=== PATIENT | male | born 1970 | race Hispanic/Latino ===

== ENCOUNTER 2017-11-16 11:47 | Inpatient (IN) | payer BC, OTHER ==
[2017-11-16] MEDS ORDERED: cefTRIAXone 1 gm 1 GM/100 ML BAG IVPB STA (12:27)
[2017-11-16] MEDS ORDERED: Sodium Chloride 0.9% 1,000 ML IV STA (12:29)
--- NOTE | 2017-11-16 12:29 | ED PDOC ---
Arrival/HPI - General Chief Complaint: Male Genitourinary Time Seen by Provider: 11/16/17 11:50 Historian: Patient - History of Present Illness Narrative History of Present Illness (Text): 11/16/17 12:20 pt p/w + ~ 1-2 weeks onset of fever, dysuria, urinary frequency, pt was seen at least twice at [facility] ED with noted urinary retention/+ davila cath placed and subsequently removed at Dr gomez's office; pt was already started on Cipro at first; pt states over the last few days, fever resumed, and urinary difficulties continued; pt states he felt fatigued/weak in general, pt states he was seen again at [facility] ED, had labs and restarted on Cipro, but did not help and when urine culture returned + for MRSA sensitive to Doxy, pt was prescribed it yesterday; given return symptoms of fever/generalized unease/ unwell feeling, pt was instructed by Dr gomez/Enoch, to come to [place] ED for further eval/mgt; pt states no cp/sob/palpitations, no anterior abd pain, no n/v , no appetite changes, no fall/trauma/travel, no sick contact; pt states this all started 1 month ago after + for the flu and developing severe nasal congestions; pt states no loc, no padgett, no other complaints pt is here for further eval. PCP: Dr Kendall Urology: Dr Gomez Time/Duration: > week Symptom Onset: Gradual Symptom Course: Intermittent, Worsening Severity Level: Mild Activities at Onset: Rest Context: Home Past Medical History - Provider Review Nursing Documentation Reviewed: Yes - Travel History Have you recently traveled outside [place] w/in the past 3 mons?: No - Past History Past History: No Previous - Infectious Disease Hx of Infectious Diseases: None - Genitourinary/Gynecological Hx Prostate Problems: Yes - Psychiatric Hx Substance Use: No - Anesthesia Hx Anesthesia: No Family/Social History - Physician Review Nursing Documentation Reviewed: Yes Family/Social History: No Known Family HX Smoking Status: Unknown If Ever Smoked Hx Alcohol Use: No Hx Substance Use: No Hx Substance Use Treatment: No Allergies/Home Meds Allergies/Adverse Reactions: Allergies No Known Allergies Allergy (Verified 11/16/17 12:10) Home Medications: Home Meds Medication Instructions Recorded Confirmed Doxycycline Hyclate [Doryx] 100 mg PO BID 11/16/17 11/16/17 Tamsulosin [Flomax] 0.4 mg PO DAILY 11/16/17 11/16/17 Review of Systems - Review of Systems Constitutional: Fatigue, Fevers Eyes: Normal ENT: Normal Respiratory: Normal Cardiovascular: Normal Gastrointestinal: Normal Genitourinary Male: Dysuria, Frequency Musculoskeletal: Back Pain (right back pain) Skin: Normal Neurological: Normal Endocrine: Normal Hemo/Lymphatic: Normal Psychiatric: Normal Physical Exam Vital Signs Reviewed: Yes Vital Signs Temp Pulse Resp BP Pulse Ox 11/16/17 13:06 100.4 F H 11/16/17 12:01 100.4 F H 92 H 18 130/68 99 Temperature: Febrile Blood Pressure: Normal Pulse: Regular Respiratory Rate: Normal Appearance: Positive for: Well-Appearing, Other (comfortable, alert/awake, cooperative, NAD, follows command with ease, interactive) Pain Distress: None Mental Status: Positive for: Alert and Oriented X 3 - Systems Exam Head: Present: Atraumatic, Normocephalic Pupils: Present: PERRL, Other (no nystagmus, no photophobia, sclera anicteric, visual field intact b/l) Extroacular Muscles: Present: EOMI Conjunctiva: Present: Normal Ears: Present: Normal Mouth: Present: Moist Mucous Membranes, Normal Teeth, Other (uvula/tongue are midline, no exudate/lesions, no drooling/stridor, intact dentitions) Pharnyx: Present: Normal Nose (External): Present: Atraumatic Nose (Internal): Present: Normal Inspection Neck: Present: Normal Range of Motion, Trachea Midline, Other (no step off, no midline tenderness, no nuchal rigidity, no masses/gross deformities). No: MIDLINE TENDERNESS Respiratory/Chest: Present: Clear to Auscultation, Good Air Exchange, Other ( CTA b/l, no w/r/r, no accessory muscle use noted, no tachypenia) Cardiovascular: Present: Regular Rate and Rhythm Abdomen: Present: Normal Bowel Sounds, Other (well nourished male, no focal tenderness, no masses/rebound/guarding/rigidity, no andres's sign, no mcburney' s point tenderness) Back: Present: Normal Inspection, Other (no step off, no midline tenderness). No: CVA Tenderness, Midline Tenderness Upper Extremity: Present: Normal Inspection, Normal ROM, NORMAL PULSES, Neurovascularly Intact, Capillary Refill < 2s Lower Extremity: Present: Normal Inspection, NORMAL PULSES, Normal ROM, Neurovascularly Intact Neurological: Present: GCS=15, CN II-XII Intact, Speech Normal, Other (NIH stroke scale ~ 0, No facial changes, no slurr speech) Skin: Present: Warm, Normal Color, Other (no pallor). No: Rashes Psychiatric: Present: Alert, Oriented x 3 Medical Decision Making ED Course and Treatment: 11/16/17 12:28 Impression: fever, urinary changes i have consider all the differential diagnosis regarding pt's chief medical complaints/clinical findings, including but are not limited to: fever, urinary changes A/P: urine changes, fever - labs - cultures - iv - xray - observe - supportive care 11/16/2017 12:[address] Gomez, whom requests Abd/Pelvis CT and to contact Dr. Nuñez for ID consult and to admit patient to Dr. Nixon's service. 11/16/2017 12:[address] Nixon, whom agrees to admit patient under his service. 11/16/2017 13:17 Chest X-ray IMPRESSION: No active disease. Dictator: Yazan Gallegos MD 11/16/2017 15:02 Abd/Pelvis CT IMPRESSION: There is a fluid collection along the periphery of the left kidney in the upper pole. This is suspicious for pyelonephritis with early abscess formation. Inflammatory changes are seen in the surrounding fat planes. Dictator: Yazan Gallegos MD 11/16/17 15:42 pt is made aware of his medical results agrees with admission pt is not in any distress currently Re-evaluation Time: 15:20 Reassessment Condition: Improved - Lab Interpretations I have reviewed the lab results: Yes Interpretation: Abnormal lab values (decr NA, K) - RAD Interpretation Narrative RAD Interpretations (Text): 11/16/17 15:21 PROCEDURE: CT Abdomen and Pelvis with contrast HISTORY: r.o pyelo, r/o abscess COMPARISON: None. TECHNIQUE: Contrast dose: 100 cc of Omni 350 Radiation dose: Total exam DLP = 717 mGy-cm. This CT exam was performed using one or more of the following dose reduction techniques: Automated exposure control, adjustment of the mA and/or kV according to patient size, and/or use of iterative reconstruction technique. FINDINGS: LOWER THORAX: Unremarkable. LIVER: Unremarkable. No gross lesion or ductal dilatation. GALLBLADDER AND BILE DUCTS: Unremarkable. PANCREAS: Unremarkable. No gross lesion or ductal dilatation. SPLEEN: Unremarkable. ADRENALS: Unremarkable. No mass. KIDNEYS AND URETERS: There is a fluid collection along the periphery of the left kidney in the upper pole. This is suspicious for pyelonephritis with early abscess formation. Inflammatory changes are seen in the surrounding fat planes. The finding is best seen on image 63 series 3 and coronal image 73 Small stones are seen in the lower pole of left kidney VASCULATURE: Unremarkable. No aortic aneurysm. BOWEL: Unremarkable. No obstruction. No gross mural thickening. APPENDIX: Normal appendix. PERITONEUM: Unremarkable. No free fluid. No free air. LYMPH NODES: Unremarkable. No enlarged lymph nodes. BLADDER: Unremarkable. REPRODUCTIVE: Prostate has an nodular appearance with areas of hypodensity. The prostate measures 52 mm transversely BONES: No acute fracture. OTHER FINDINGS: None. IMPRESSION: There is a fluid collection along the periphery of the left kidney in the upper pole. This is suspicious for pyelonephritis with early abscess formation. Inflammatory changes are seen in the surrounding fat planes. 11/16/17 15:43 HISTORY: Sepsis Patient COMPARISON: No prior. FINDINGS: LUNGS: No active pulmonary disease. PLEURA: No significant pleural effusion identified, no pneumothorax apparent. CARDIOVASCULAR: Normal. OSSEOUS STRUCTURES: No significant abnormalities. VISUALIZED UPPER ABDOMEN: Normal. OTHER FINDINGS: None. IMPRESSION: No active disease. Radiology Orders: 11/16/17 12:26 CHEST PORTABLE [RAD] Stat 11/16/17 12:47 ABD & PELVIS IV CONTRAST ONLY [CT] Stat Grain Sacker: Radiologist - EKG Interpretation EKG Interpretation (Text): 11/16/17 15:21 NSR at 85 bpm, normal axis, no ectopy, non-specific st-t changes, inverted T in leads V1-3, ABNL EKG; no old ekg to compare with Interpreted by ED Physician: Yes Type: 12 lead EKG Comparison: No previous EKG avail. - Medication Orders Current Medication Orders: Discontinued Medications Acetaminophen (Tylenol 325mg Tab) 650 mg PO STAT STA Stop: 11/16/17 12:30 Last Admin: 11/16/17 13:06 Dose: 650 mg MAR Pain/Vitals Document 11/16/17 13:06 BRENT (Rec: 11/16/17 13:06 BRENT [id number]) Location Intensity 0 Scale Used Numeric Vitals Temperature (97.6 F-99.6 F) 100.4 F Temperature Source Oral Ceftriaxone Sodium (Rocephin 1 Gram Ivpb) 1 gm in 100 mls @ 200 mls/hr IVPB STAT STA PRN Reason: Protocol Stop: 11/16/17 12:56 Last Admin: 11/16/17 13:07 Dose: 200 mls/hr eMAR Start Stop Document 11/16/17 13:07 BRENT (Rec: 11/16/17 13:07 BRENT [id number]) Intravenous Solution Start Date 11/16/17 Start Time 13:07 End Date 11/16/17 End time 13:37 Total Infusion Time 30 Sodium Chloride (Sodium Chloride 0.9%) 1,000 mls @ 999 mls/hr IV .Q1H1M STA Stop: 11/16/17 13:29 Last Admin: 11/16/17 13:07 Dose: 999 mls/hr eMAR Start Stop Document 11/16/17 13:07 BRENT (Rec: 11/16/17 13:07 BRENT [id number]) Intravenous Solution Start Date 11/16/17 Start Time 13:07 End Date 11/16/17 End time 14:07 Total Infusion Time 60 Vancomycin HCl (Vancomycin 1gm) 1 gm in 250 mls @ 167 mls/hr IVPB STAT STA PRN Reason: Protocol Stop: 11/16/17 14:19 Last Admin: 11/16/17 14:20 Dose: 167 mls/hr eMAR Start Stop Document 11/16/17 14:20 BRENT (Rec: 11/16/17 14:24 BRENT [id number]) Intravenous Solution Start Date 11/16/17 Start Time 14:20 End Date 11/16/17 End time 15:50 Total Infusion Time 90 Potassium Chloride (Klor-Con 10) 10 meq PO STAT STA Stop: 11/16/17 15:24 Disposition/Present on Arrival - Present on Arrival Any Indicators Present on Arrival: No History of DVT/PE: No History of Uncontrolled Diabetes: No Urinary Catheter: No History of Decub. Ulcer: No History Surgical Site Infection Following: None - Disposition Have Diagnosis and Disposition been Completed?: Yes Diagnosis: Acute pyelonephritis, UTI (urinary tract infection), Hypokalemia Disposition: HOSPITALIZED Disposition Time: 13:00 Patient Plan: Admission Patient Problems: Current Active Problems Problem Status Onset Acute pyelonephritis Acute UTI (urinary tract infection) Acute Hypokalemia Acute Condition: STABLE
[2017-11-16] MEDS ORDERED: Vancomycin 1gm in NS 250ml 1 GM/250 ML BAG IVPB STA (12:50)
--- NOTE | 2017-11-16 13:19 | RAD ---
HISTORY: Sepsis Patient COMPARISON: No prior. FINDINGS: LUNGS: No active pulmonary disease. PLEURA: No significant pleural effusion identified, no pneumothorax apparent. CARDIOVASCULAR: Normal. OSSEOUS STRUCTURES: No significant abnormalities. VISUALIZED UPPER ABDOMEN: Normal. OTHER FINDINGS: None. IMPRESSION: No active disease.
[2017-11-16 13:32] LABS: VENOUS BLOOD GAS PO2 35 mm/Hg (30-55); VENOUS BLOOD PH 7.46 (7.32-7.43)
[2017-11-16 13:33] LABS: URINE BILIRUBIN NEGATIVE (NEGATIVE); URINE BLOOD NEGATIVE (NEGATIVE); URINE COLOR YELLOW (YELLOW); URINE GLUCOSE (UA) NEGATIVE (NEGATIVE); URINE LEUKOCYTE ESTERASE SMALL Leu/uL (NEGATIVE); URINE NITRATE NEGATIVE (NEGATIVE); URINE PROTEIN NEGATIVE mg/dL (<30 mg/dL); URINE UROBILINOGEN 0.2 E.U./dL (<1 E.U./dL)
[2017-11-16 13:33] LABS: GRAN # 7.12 (1.4-6.5); GRAN % 85.1 % (50.0-68.0); HEMOGLOBIN 11.5 g/dL (14.0-18.0); LYMPH # 0.7 (1.2-3.4); LYMPH % 8.2 % (22.0-35.0); MEAN CELL VOLUME 82.7 fl (80.0-105.0); MEAN CORPUSCULAR HGB CONC 33.8 g/dl (31.0-37.0); MEAN PLATELET VOLUME 10.1 fl (7.0-11.0); MONO # 0.6 (0.1-0.6); MONO % 6.7 % (1.0-6.0); RBC 4.11 10^6/uL (3.5-6.1); RED CELL DISTRIBUTION WIDTH 13.5 % (11.5-14.5); WHITE BLOOD COUNT 8.4 10^3/ul (4.5-11.0)
[2017-11-16 13:34] LABS: URINE APPEARANCE CLEAR (CLEAR)
[2017-11-16 13:39] LABS: ALBUMIN 3.7 g/dL (3.0-4.8); ALT/SGPT 40 U/L (7-56); AST/SGOT 20 U/L (17-59); BLOOD UREA NITROGEN 14 mg/dL (7-21); CALCIUM 10.2 mg/dL (8.4-10.5); GFR AFRICAN-AMERICAN > 60; GFR NON-AFRICAN AMERICAN > 60
[2017-11-16] MEDS ORDERED: Iohexol 350 MG/100 ML VIAL ONE (13:47)
[2017-11-16 13:49] LABS: URINE RBC NEGATIVE /hpf (0-2)
[2017-11-16 13:50] LABS: URINE BACTERIA MOD (NEG); URINE EPITHELIAL CELLS 0 - 2 /hpf (0-5)
--- NOTE | 2017-11-16 15:03 | CT ---
PROCEDURE: CT Abdomen and Pelvis with contrast HISTORY: r.o pyelo, r/o abscess COMPARISON: None. TECHNIQUE: Contrast dose: 100 cc of Omni 350 Radiation dose: Total exam DLP = 717 mGy-cm. This CT exam was performed using one or more of the following dose reduction techniques: Automated exposure control, adjustment of the mA and/or kV according to patient size, and/or use of iterative reconstruction technique. FINDINGS: LOWER THORAX: Unremarkable. LIVER: Unremarkable. No gross lesion or ductal dilatation. GALLBLADDER AND BILE DUCTS: Unremarkable. PANCREAS: Unremarkable. No gross lesion or ductal dilatation. SPLEEN: Unremarkable. ADRENALS: Unremarkable. No mass. KIDNEYS AND URETERS: There is a fluid collection along the periphery of the left kidney in the upper pole. This is suspicious for pyelonephritis with early abscess formation. Inflammatory changes are seen in the surrounding fat planes. The finding is best seen on image 63 series 3 and coronal image 73 Small stones are seen in the lower pole of left kidney VASCULATURE: Unremarkable. No aortic aneurysm. BOWEL: Unremarkable. No obstruction. No gross mural thickening. APPENDIX: Normal appendix. PERITONEUM: Unremarkable. No free fluid. No free air. LYMPH NODES: Unremarkable. No enlarged lymph nodes. BLADDER: Unremarkable. REPRODUCTIVE: Prostate has an nodular appearance with areas of hypodensity. The prostate measures 52 mm transversely BONES: No acute fracture. OTHER FINDINGS: None. IMPRESSION: There is a fluid collection along the periphery of the left kidney in the upper pole. This is suspicious for pyelonephritis with early abscess formation. Inflammatory changes are seen in the surrounding fat planes.
[2017-11-16] MEDS ORDERED: Potassium Chloride 10 mEq ER Tab PO STA (15:23)
[2017-11-16] MEDS ORDERED: Pneumococcal 23-Valent Vaccine IM ONE (16:48)
[2017-11-16] MEDS ORDERED: Influenza Vaccine 60 mcg/0.5 mL SYR (4YR UP) IM ONE (16:48)
[2017-11-16] MEDS ORDERED: Sodium Chloride 0.9% 1,000 ML IV SCH (18:30)
[2017-11-16 21:05] LABS: URINE BILIRUBIN NEGATIVE (NEGATIVE); URINE BLOOD NEGATIVE (NEGATIVE); URINE GLUCOSE (UA) NEGATIVE (NEGATIVE); URINE LEUKOCYTE ESTERASE SMALL Leu/uL (NEGATIVE); URINE NITRATE NEGATIVE (NEGATIVE); URINE PROTEIN NEGATIVE mg/dL (<30 mg/dL); URINE UROBILINOGEN 0.2 E.U./dL (<1 E.U./dL)
[2017-11-16 21:06] LABS: URINE APPEARANCE CLEAR (CLEAR); URINE COLOR LIGHT YELLOW (YELLOW)
[2017-11-16 21:20] LABS: URINE RBC NEGATIVE /hpf (0-2); URINE WBC 0 - 2 /hpf (0-6)
[2017-11-17 07:04] LABS: HEMOGLOBIN 11.6 g/dL (14.0-18.0); MEAN CELL VOLUME 84.1 fl (80.0-105.0); MEAN CORPUSCULAR HEMOGLOBIN 27.9 pg (25.0-35.0); MEAN CORPUSCULAR HGB CONC 33.1 g/dl (31.0-37.0); MEAN PLATELET VOLUME 10.3 fl (7.0-11.0); RBC 4.16 10^6/uL (3.5-6.1); RED CELL DISTRIBUTION WIDTH 13.8 % (11.5-14.5); WHITE BLOOD COUNT 6.3 10^3/ul (4.5-11.0)
[2017-11-17 07:17] LABS: ALBUMIN 3.5 g/dL (3.0-4.8); ALT/SGPT 36 U/L (7-56); AST/SGOT 28 U/L (17-59); BLOOD UREA NITROGEN 14 mg/dL (7-21); CALCIUM 10.3 mg/dL (8.4-10.5); GFR AFRICAN-AMERICAN > 60; GFR NON-AFRICAN AMERICAN > 60; MAGNESIUM 2.2 mg/dL (1.7-2.2)
[2017-11-17] MEDS: Piperacillin/Tazobact 3.375 gm 100 ML IVPB SCH ×3 (07:26→17:38)
[2017-11-17] MEDS: Vancomycin 1gm in NS 250ml 1 GM/250 ML BAG IVPB SCH ×2 (08:51→20:48)
--- NOTE | 2017-11-17 09:33 | CARD ---
APPROVED REPORT EKG Measurement Heart [id number] FL [id number] <Conclusion> Normal sinus rhythm Possible Left atrial enlargement T wave abnormality V1-V3.
[2017-11-17] MEDS: POLYETHYLENE GLYCOL 3350 17 GM/Dose PACKET PO SCH (16:06)
--- NOTE | 2017-11-17 22:13 | CP.PCM.CON ---
History of Present Illness - History of Present Illness History of Present Illness: 47 year old male with no significant past medical history came in to [facility] after after being seen several times at the [facility] urgent care center several times over the past month. He initially developed urinary retention for which a Pino catheter was placed. He subsequently went to his Urologist who removed the Pino catheter. He was given Ciprofloxacin because he was having dysuria. He felt better but then he developed retention again and went back the urgent care center and had another Pino catheter and at that time, pus came out through the Pino Catheter. He also started having some pain on his left flank. He was continued on Ciprofloxacin but was then switched to Doxycycline after he was found to have MRSA on the culture of the pus that came out of the Pino. He continue to have some dysuria and flank pain and he was instructed by his PMD to be admitted at [facility]. He currently denies fever or chills, no nausea or vomiting, no chest pain, no SOB, no headache or dizziness, no sore throat, no diarrhea. Infectious Diseases consult is requested to further evaluate and manage. Review of Systems - Review of Systems All systems: reviewed and no additional remarkable complaints except (as per HPI ) Past Patient History - Infectious Disease Hx of Infectious Diseases: None - Past Social History Smoking Status: Never Smoked - INTEGUMENTARY Hx Psoriasis: Yes - MUSCULOSKELETAL/RHEUMATOLOGICAL Hx Falls: No - GENITOURINARY/GYNECOLOGICAL Hx Prostate Problems: Yes - PSYCHIATRIC Hx Substance Use: No - ANESTHESIA Hx Anesthesia: No Meds Allergies/Adverse Reactions: Allergies Allergy/AdvReac Type Severity Reaction Status Date / Time No Known Allergies Allergy Verified 11/16/17 12:10 - Medications Medications: Current Medications Vancomycin HCl (Vancomycin 1gm) 1 gm in 250 mls @ 167 mls/hr IVPB Q12H EDELMIRA PRN Reason: Protocol Stop: 11/24/17 06:31 Piperacillin Sod/Tazobactam Sod (Zosyn 3.375 In Ns 100ml) 100 mls @ 200 mls/hr IVPB Q6 EDELMIRA PRN Reason: Protocol Stop: 11/24/17 06:19 Tamsulosin HCl (Flomax) 0.4 mg PO DAILY EDELMIRA Physical Exam - Constitutional Appears: Non-toxic - Head Exam Head Exam: NORMAL INSPECTION - Neck Exam Neck exam: Negative for: Meningismus - Respiratory Exam Respiratory Exam: Decreased Breath Sounds - Cardiovascular Exam Cardiovascular Exam: +S1, +S2 - GI/Abdominal Exam GI & Abdominal Exam: Soft. absent: Tenderness Results - Vital Signs Recent Vital Signs: Last Vital Signs Temp 99.3 F 11/17/17 00:00 Pulse 76 11/17/17 00:00 Resp 18 11/17/17 00:00 BP 122/78 11/17/17 00:00 Pulse Ox 95 11/17/17 00:00 - Labs Result Diagrams: 11/17/17 06:30 11/17/17 06:30 Labs: Laboratory Results - last 24 hr 11/16/17 11/16/17 11/16/17 13:11 13:15 13:15 WBC 8.4 RBC 4.11 Hgb 11.5 L Hct 34.0 L MCV 82.7 MCH 28.0 MCHC 33.8 RDW 13.5 Plt Count 161 MPV 10.1 Gran % 85.1 H Lymph % (Auto) 8.2 L [place] % (Auto) 6.7 H Eos % (Auto) 0.0 L Baso % (Auto) 0.0 Gran # 7.12 H Lymph # (Auto) 0.7 L [place] # (Auto) 0.6 Eos # (Auto) 0.0 Baso # (Auto) 0.00 pO2 VBG pH VBG pCO2 VBG HCO3 VBG Total CO2 VBG O2 Sat (Calc) VBG Base Excess VBG Potassium Sodium Chloride Glucose Lactate FiO2 Potassium Carbon Dioxide Anion Gap BUN Creatinine Est GFR ( Amer) Est GFR (Non-Af Amer) Random Glucose Calcium Phosphorus Magnesium Total Bilirubin AST ALT Alkaline Phosphatase C-React Prot High Sens Total Protein Albumin Globulin Albumin/Globulin Ratio Procalcitonin < 0.05 L Venous Blood Potassium Urine Color Yellow Urine Appearance Clear Urine pH 6.0 Ur Specific [place] 1.010 Urine Protein Negative Urine Glucose (UA) Negative Urine Ketones Negative Urine Blood Negative Urine Nitrate Negative Urine Bilirubin Negative Urine Urobilinogen 0.2 Ur Leukocyte Esterase Small H Urine RBC Negative Urine WBC 5 - 10 Ur Epithelial Cells 0 - 2 Urine Bacteria Mod 11/16/17 11/16/17 11/16/17 13:15 13:15 13:15 WBC RBC Hgb Hct MCV MCH MCHC RDW Plt Count MPV Gran % Lymph % (Auto) [place] % (Auto) Eos % (Auto) Baso % (Auto) Gran # Lymph # (Auto) [place] # (Auto) Eos # (Auto) Baso # (Auto) pO2 35 VBG pH 7.46 H VBG pCO2 43.0 VBG HCO3 30.6 H VBG Total CO2 31.9 H VBG O2 Sat (Calc) 76.8 H VBG Base Excess 6.0 H VBG Potassium 3.2 L Sodium 127.0 L 129 L Chloride 93.0 L 91 L Glucose 124 H Lactate 1.1 FiO2 21.0 Potassium 3.3 L Carbon Dioxide 27 Anion Gap 14 BUN 14 Creatinine 0.8 Est GFR ( Amer) > 60 Est GFR (Non-Af Amer) > 60 Random Glucose 123 H Calcium 10.2 Phosphorus 2.6 Magnesium 2.0 Total Bilirubin 0.6 AST 20 ALT 40 Alkaline Phosphatase 43 C-React Prot High Sens 13.44 H Total Protein 7.2 Albumin 3.7 Globulin 3.5 Albumin/Globulin Ratio 1.0 L Procalcitonin Venous Blood Potassium 3.2 L Urine Color Urine Appearance Urine pH Ur Specific [place] Urine Protein Urine Glucose (UA) Urine Ketones Urine Blood Urine Nitrate Urine Bilirubin Urine Urobilinogen Ur Leukocyte Esterase Urine RBC Urine WBC Ur Epithelial Cells Urine Bacteria 11/16/17 20:50 WBC RBC Hgb Hct MCV MCH MCHC RDW Plt Count MPV Gran % Lymph % (Auto) [place] % (Auto) Eos % (Auto) Baso % (Auto) Gran # Lymph # (Auto) [place] # (Auto) Eos # (Auto) Baso # (Auto) pO2 VBG pH VBG pCO2 VBG HCO3 VBG Total CO2 VBG O2 Sat (Calc) VBG Base Excess VBG Potassium Sodium Chloride Glucose Lactate FiO2 Potassium Carbon Dioxide Anion Gap BUN Creatinine Est GFR ( Amer) Est GFR (Non-Af Amer) Random Glucose Calcium Phosphorus Magnesium Total Bilirubin AST ALT Alkaline Phosphatase C-React Prot High Sens Total Protein Albumin Globulin Albumin/Globulin Ratio Procalcitonin Venous Blood Potassium Urine Color Light yellow Urine Appearance Clear Urine pH 7.0 Ur Specific [place] 1.010 Urine Protein Negative Urine Glucose (UA) Negative Urine Ketones Negative Urine Blood Negative Urine Nitrate Negative Urine Bilirubin Negative Urine Urobilinogen 0.2 Ur Leukocyte Esterase Small H Urine RBC Negative Urine WBC 0 - 2 Ur Epithelial Cells None Urine Bacteria Assessment & Plan - Assessment and Plan (Free Text) Plan: Assessment Left perinephric abscess in this patient with probable pyelonephritis R/O prostatitis in this patient with MRSA UTI Plan Started patient on Vancomycin and Zosyn pending plan for perinephric abscess as seen on CT A/P - follow up Urology recommendations follow up blood and urine cx will monitor clinically
[2017-11-18] MEDS: Piperacillin/Tazobact 3.375 gm 100 ML IVPB SCH ×3 (00:48→12:58)
--- NOTE | 2017-11-18 02:49 | HP ---
CHIEF COMPLAINT AND HISTORY OF PRESENT ILLNESS: This is a 47-year-old male, who is coming into the hospital complaining of fever, dysuria, saying pus coming out while he is urinating. The patient was seen at [facility] for urinary retention. He had a Pino catheter placed. The patient had been gone to Dr. Angulo's office for evaluation. He had 2 attempts in trying to take out the catheter in order for the patient to be able to urinate. He was given ciprofloxacin for antibiotics but states that the ciprofloxacin did not help. The patient was found to have urine culture that was positive for MRSA and was given doxycycline for antibiotics. The patient has been having generalized weakness, he was not feeling well. He had been instructed by Dr. Angulo and Dr. Kendall to come into the ER for further evaluation. The patient denies any chest pain or shortness of breath. No abdominal pain. No headache. He is also complaining of back pain that was intermittent. He also was treated for flu about a month ago. He said the flu symptoms have improved. He has no complaints of any headaches or dizziness. No weakness in the arms or legs. REVIEW OF SYMPTOMS: All other review of symptoms are within normal limits except what was mentioned. ALLERGIES: NO KNOWN DRUG ALLERGIES. HOME MEDICATIONS: Doxycycline and Flomax. PAST MEDICAL HISTORY: Urinary retention. SOCIAL HISTORY: He does not smoke or drink. PHYSICAL EXAMINATION: VITAL SIGNS: Temperature is 98.3, pulse is 67, blood pressure is 118/78, respirations 18, O2 saturation 99%. Height is 5 feet 9 inches, weight is 195 pounds, BMI is 28.8. GENERAL: The patient lying in bed, uncomfortable, and in no acute distress. HEENT: Atraumatic and normocephalic. Anicteric sclerae. Moist mucosa. [place] conjunctivae. No oral lesions. NECK: No JVD, anterior and posterior adenopathy, thyromegaly, or bruits. CARDIOVASCULAR: S1 and S2 regular. No murmur, rubs, or gallop. LUNGS: Clear to auscultation bilaterally. No wheezes, rales, or rhonchi. ABDOMEN: Bowel sounds are positive. Soft, nontender and nondistended. No hepatosplenomegaly. No rebound and no guarding. EXTREMITIES: No cyanosis, clubbing, or edema. NEUROLOGIC: No facial asymmetry. Tongue is midline. No uvula deviation. Power is 5/5 upper extremity and lower extremity. Sensation intact in upper extremity and lower extremity. PSYCHIATRIC: She is awake, alert and oriented x3. No anxiety or depression. She has normal affect. GENITOURINARY: No CVA tenderness. VASCULAR: 2+ pulses in the carotid pulses and pedal pulses. SKIN: No erythema or nodules SPINE: Shows normal curvature. LABORATORY DATA: White count is 8.4, hemoglobin 11.5. Rest of his labs have been reviewed. Sodium is 129, potassium is 3.3. He has procalcitonin of 0.05. His urine as done shows esterase is small. He has blood cultures that are negative. Urine cultures that are negative. EKG shows sinus rhythm. QTc is 445, heart rate of 86. Abdominal CT done. He has a fluid collection along the periphery of the left kidney in the upper lobe suspicious for pyelonephritis with early abscess formation. ASSESSMENT: 1. Urinary tract infection. 2. Left-sided pyelonephritis with early abscess. 3. Hyponatremia. 4. Hypokalemia. PLAN: The patient's urine cultures and blood cultures are negative. This is most likely because the patient has been on antibiotics. The patient has a CAT scan that shows an abscess. He is going to be admitted to the hospital for IV antibiotics. The patient has been having back pain as well. He initially had a temperature of 100.4 on admission. He is going to be placed on vancomycin and Zosyn for antibiotics and I will get Infectious Disease and Urology to see the patient. The patient is going to be on a heart-healthy diet. I did speak to the patient's at the bedside to give her an update on the patient's diagnoses and plan of care. The patient had hyponatremia and hypokalemia. The potassium is replaced and the patient was given IV fluids. His electrolytes have improved. We will await further inputs from the consultants regarding the patient's further plan of care. Chon Lai MD
[2017-11-18] MEDS: Vancomycin 1gm in NS 250ml 1 GM/250 ML BAG IVPB SCH ×2 (06:49→17:41)
[2017-11-18] MEDS: POLYETHYLENE GLYCOL 3350 17 GM/Dose PACKET PO SCH (09:12)
--- NOTE | 2017-11-18 15:15 | CP.PCM.PN ---
Subjective - Date & Time of Evaluation Date of Evaluation: 11/18/17 Time of Evaluation: 09:30 - Subjective Subjective: Feeling a little better, no fevers overnight. Objective - Vital Signs/Intake and Output Vital Signs (last 24 hours): Temp Pulse Resp BP Pulse Ox 98.8 F 86 20 126/83 98 11/18/17 00:00 11/18/17 00:00 11/18/17 00:00 11/18/17 00:00 11/18/17 00:00 Intake and Output: 11/18/17 11/18/17 06:59 18:59 Intake Total 480 Balance 480 - Medications Medications: Current Medications Vancomycin HCl (Vancomycin 1gm) 1 gm in 250 mls @ 167 mls/hr IVPB Q12H EDELMIRA PRN Reason: Protocol Stop: 11/24/17 06:31 Last Admin: 11/18/17 06:49 Dose: 167 mls/hr Piperacillin Sod/Tazobactam Sod (Zosyn 3.375 In Ns 100ml) 100 mls @ 200 mls/hr IVPB Q6 EDELMIRA PRN Reason: Protocol Stop: 11/24/17 06:19 Last Admin: 11/18/17 12:58 Dose: 200 mls/hr Polyethylene Glycol (Miralax) 17 gm PO DAILY EDELMIRA Last Admin: 11/18/17 09:12 Dose: 17 gm Tamsulosin HCl (Flomax) 0.4 mg PO DAILY [facility] Last Admin: 11/18/17 09:12 Dose: 0.4 mg - Labs Labs: 11/17/17 06:30 11/17/17 06:30 - Constitutional Appears: Non-toxic - Head Exam Head Exam: NORMAL INSPECTION - Respiratory Exam Respiratory Exam: Decreased Breath Sounds - Cardiovascular Exam Cardiovascular Exam: +S1, +S2 - GI/Abdominal Exam GI & Abdominal Exam: Soft. absent: Tenderness Assessment and Plan - Assessment and Plan (Free Text) Plan: Assessment Left perinephric abscess in this patient with probable pyelonephritis and probable prostatitis in this patient who grew MRSA in the urine previously Plan on Vancomycin and Zosyn day 2 - blood and urine cx have been negative on this admission - urine has cleared while on Doxycycline as an outpatient - discussed with Dr. Angulo - perinephric abscess is too small to be drained and can be treated conservatively will recommend at least 4 weeks of Doxycycline with outpatient follow up with Urology will continue to monitor clinically
--- NOTE | 2017-11-18 16:43 | PN ---
DATE: SUBJECTIVE: The patient is 47 years old, resting comfortably. Girlfriend by the bedside has multiple questions. Denies any fever or chills. No nausea, vomiting or diarrhea. PHYSICAL EXAMINATION: VITAL SIGNS: He is afebrile, pulse 66, respirations 20, blood pressure 126/83. LUNGS: Bilateral good airflow. No rhonchi or crackle. HEART: S1 and S2 audible. ABDOMEN: Soft. Nontender. No rebound. No guarding. NEUROLOGIC: He is awake, alert, oriented, communicative. LABORATORY DATA: Procalcitonin 0.05. Venous potassium is 3.2. Sodium 129, potassium 3.3, chloride 91, CO2 of 27, BUN 14, creatinine of 0.8, blood sugar of 123. Blood cultures, urine cultures are negative. ASSESSMENT: 1. Recurrent urinary tract infection. 2. Left perinephric abscess. 3. Pyelonephritis. 4. Hyponatremia. 5. Hypokalemia. PLAN: At this point, the patient is on vancomycin and Zosyn. He is on Flomax. We will order his CBC and CMP in the a.m. Explained to girlfriend who was at the bedside. We will follow up this patient in the a.m. Ally Soria MD
[2017-11-19 03:27] VITALS: RESP 18
[2017-11-19] MEDS: Vancomycin 1gm in NS 250ml 1 GM/250 ML BAG IVPB SCH (05:39)
[2017-11-19 08:09] VITALS: BP 115/74; PULSE 70; TEMP 98; O2SAT 98
[2017-11-19 08:38] LABS: BASO # 0.01 K/mm3 (0.0-2.0); BASO % 0.2 % (0.0-3.0); EOS # 0.1 (0.0-0.7); EOS % 1.2 % (1.5-5.0); GRAN # 3.63 (1.4-6.5); GRAN % 70.5 % (50.0-68.0); HEMOGLOBIN 10.8 g/dL (14.0-18.0); LYMPH # 1.2 (1.2-3.4); LYMPH % 22.5 % (22.0-35.0); MEAN CORPUSCULAR HEMOGLOBIN 27.5 pg (25.0-35.0); MEAN CORPUSCULAR HGB CONC 32.3 g/dl (31.0-37.0); MEAN PLATELET VOLUME 9.9 fl (7.0-11.0); MONO # 0.3 (0.1-0.6); MONO % 5.6 % (1.0-6.0); RBC 3.93 10^6/uL (3.5-6.1); WHITE BLOOD COUNT 5.2 10^3/ul (4.5-11.0)
[2017-11-19 09:24] LABS: ALBUMIN 3.1 g/dL (3.0-4.8); ALT/SGPT 62 U/L (7-56); AST/SGOT 29 U/L (17-59); BLOOD UREA NITROGEN 12 mg/dL (7-21); CALCIUM 9.9 mg/dL (8.4-10.5); GFR AFRICAN-AMERICAN > 60; GFR NON-AFRICAN AMERICAN > 60
[2017-11-19] MEDS: POLYETHYLENE GLYCOL 3350 17 GM/Dose PACKET PO SCH (10:03)
--- NOTE | 2017-11-19 13:18 | CP.PCM.PN ---
Subjective - Date & Time of Evaluation Date of Evaluation: 11/19/17 Time of Evaluation: 11:25 - Subjective Subjective: Urinating much better, no fevers, no flank pain, not in distress Objective - Vital Signs/Intake and Output Vital Signs (last 24 hours): Temp Pulse Resp BP Pulse Ox 98.8 F 86 20 126/83 98 11/18/17 00:00 11/18/17 00:00 11/18/17 00:00 11/18/17 00:00 11/18/17 00:00 Intake and Output: 11/18/17 11/18/17 06:59 18:59 Intake Total 480 Balance 480 - Medications Medications: Current Medications Doxycycline Hyclate (Doryx) 100 mg PO Q12 EDELMIRA PRN Reason: Protocol Vancomycin HCl (Vancomycin 1gm) 1 gm in 250 mls @ 167 mls/hr IVPB Q12H EDEMLIRA PRN Reason: Protocol Stop: 11/24/17 06:31 Last Admin: 11/18/17 06:49 Dose: 167 mls/hr Polyethylene Glycol (Miralax) 17 gm PO DAILY [facility] Last Admin: 11/18/17 09:12 Dose: 17 gm Tamsulosin HCl (Flomax) 0.4 mg PO DAILY [facility] Last Admin: 11/18/17 09:12 Dose: 0.4 mg - Labs Labs: 11/17/17 06:30 11/17/17 06:30 - Constitutional Appears: Non-toxic - Head Exam Head Exam: NORMAL INSPECTION - ENT Exam ENT Exam: Mucous Membranes Moist - Neck Exam Neck Exam: absent: Meningismus - Respiratory Exam Respiratory Exam: Decreased Breath Sounds. absent: Rales - Cardiovascular Exam Cardiovascular Exam: +S1, +S2 - GI/Abdominal Exam GI & Abdominal Exam: Soft. absent: Tenderness Assessment and Plan - Assessment and Plan (Free Text) Plan: Assessment Left perinephric abscess in this patient with probable pyelonephritis and probable prostatitis in this patient who grew MRSA in the urine previously Plan on Vancomycin - will change to PO Doxycycline since urine cx and blood are negative on this admission, which means that the Doxycycline that the patient was talking as an oupatient has cleared the urine - discussed with Dr. Angulo - perinephric abscess is too small to be drained and can be treated conservatively will recommend at least 4 weeks of Doxycycline with outpatient follow up with Urology will continue to monitor clinically
--- NOTE | 2017-11-20 04:53 | DS ---
HISTORY OF PRESENT ILLNESS: The patient is 47 years old, seen and examined, doing well. No nausea, vomiting. No diarrhea. No fever, no chills. No chest pain. No shortness of breath. The patient states he has been having urinary discomfort for almost a month. Initially, he was found to have a UTI. He went to [facility] where he was given antibiotic. He developed retention. He was catheterized. He was seen twice in the [facility]. He was followed by Dr. Angulo. His Pino was removed. At that point, he was on Cipro. He developed fever, chills with nausea and vomiting. So he came to [facility] where he had blood culture and urine culture done. They are unremarkable. The patient currently is asymptomatic, urinating fine. PHYSICAL EXAMINATION: VITAL SIGNS: He is afebrile, pulse 70, respirations 18, blood pressure 115/74. LUNGS: Bilateral good airflow. No rhonchi or crackle. HEART: S1 and S2 audible. ABDOMEN: Soft. Nontender. No rebound. No guarding. NEUROLOGIC: He is awake, alert, oriented, communicative, ambulatory. LABORATORY DATA: Sodium 140, potassium 3.8, chloride 102, CO2 of 29, BUN 12, creatinine of 0.8, blood sugar 94. ASSESSMENT: 1. Recurrent urinary tract infection. 2. Probably prostatitis. 3. Left perinephric stranding, questionable abscess versus pyelonephritis. PLAN: ID input noted and appreciated. Recommendation is to be on doxycycline 100 twice a day for a month and he will be followed by Dr. Angulo as outpatient. He will have a repeat CT of the abdomen and pelvis done to see if fluid has reabsorbed or it is still there. At this point, according to Dr. Angulo's recommendation, there is no intervention or drainage needed. Ally Soria MD
--- NOTE | 2017-11-20 08:54 | PN ---
DATE: 11/17/2017 SUBJECTIVE: Patient known to me, presented a few weeks ago with urinary retention which appeared to be from medications and decongestants and antihistamines that he was taking for upper respiratory infection and flu. Patient had a Pino catheter inserted in an urgent care; he then presented a few days later for a voiding trial. Pino was removed and patient was again unable to void and requiring Pino to be replaced. Patient had been taking alpha-leslie. He reports when the catheter was initially placed, he had not voided for about 2 days and his bladder was noted to be markedly distended. Prior to this episode, patient reports no voiding difficulties in the past. He has had good stream with no nocturia. After Pino was reinserted, the patient reported few days later, high fever and shaking chills. He was told to come to the hospital which he did not do; he went back to urgent care, a culture was done, and he was started on Cipro. The culture grew MRSA in his urine. His antibiotics were switched to doxycycline, which the MRSA was sensitive to; however, patient continued to have high fever and chills as well as elevated ESR. Again, patient was referred for admission. This time, he presented to the emergency room and was now admitted. CT scan was done, which I reviewed with Radiology. There does appear to be a tiny collection near his kidney. Also, his prostate is heterogeneous and abnormal. OBJECTIVE: Patient has been afebrile since admission with stable vital signs. LABORATORY DATA: WBC count was 8.4 yesterday, down to 6.3 today. GFR is normal. C-reactive protein is elevated and procalcitonin is negative. Urine culture showed no growth. Blood cultures, no growth after 24 hours. IMPRESSION AND PLAN: Continue patient on antibiotics for methicillin-resistant Staphylococcus aureus infection in his urine. Recommends ID consultation. There is no obvious collection, which could be drained in either of the kidneys or from the prostate, but we will need to plan on repeating a CT scan in a few days to see if any other collections form and do turn into an abscess. Continue fluids, antibiotics, and close observation at this time. Jatinder Angulo MD
== END 2017-11-19 13:58 | disposition home or self-care (01) | DRG 690 ==
LOC: ED 11:47 → ERH 13:06 → 5RSO 15:37
PROVIDERS: ADMIT Internal Medicine Nephrology; ATTEND Internal Medicine Nephrology
DX: N10 Acute pyelonephritis (principal); E87.1 Hypo-osmolality and hyponatremia; N41.9 Inflammatory disease of prostate, unspecified; N15.1 Renal and perinephric abscess; E87.6 Hypokalemia; B95.62 Methicillin resistant Staphylococcus aureus infection as the cause of diseases classified elsewhere

== ENCOUNTER 2018-06-14 15:52 | Emergency (ER) | payer BC ==
[2018-06-14 16:46] VITALS: BP 125/83; PULSE 86; RESP 17; TEMP 98.2; O2SAT 97; BMI 26.6
--- NOTE | 2018-06-14 17:11 | ED PDOC ---
Arrival/HPI - General Historian: Patient - History of Present Illness Narrative History of Present Illness (Text): 06/14/18 16:57 48yo male with pmhx of BPH referred to ED by Dr. kendall for evaluation of possible facial abscess. Patient states he developed a pimple on his nasolabial area, which opened up and drained. States the area became swollen, red and painful the next day. He saw Dr. kendall and was placed on Augmentin. this is his day #4 on Augmentin. He saw the Doctor today for worsening symptom and was referred to ED. He denies fever, chills, nausea, visual changes, headache, any other complaint. <Fozia Bellamy A - Last Filed: 06/14/18 20:30> <Austin Zarco - Last Filed: 06/18/18 13:41> - General Chief Complaint: Abnormal Skin Integrity Time Seen by Provider: 06/14/18 15:55 Past Medical History - Provider Review Nursing Documentation Reviewed: Yes - Past History Past History: No Previous - Infectious Disease Hx of Infectious Diseases: None - Integumentary Hx Psoriasis: Yes - Musculoskeletal/Rheumatological Hx Falls: No - Genitourinary/Gynecological Hx Prostate Problems: Yes (enlarged prostate) - Psychiatric Hx Substance Use: No - Anesthesia Hx Anesthesia: No <Fozia Bellamy A - Last Filed: 06/14/18 20:30> Family/Social History - Physician Review Nursing Documentation Reviewed: Yes Family/Social History: Unknown Family HX Smoking Status: Never Smoked Hx Alcohol Use: No Hx Substance Use: No Hx Substance Use Treatment: No <Fozia Bellamy A - Last Filed: 06/14/18 20:30> Allergies/Home Meds <Fozia Bellamy A - Last Filed: 06/14/18 20:30> <Austin Zarco - Last Filed: 06/18/18 13:41> Allergies/Adverse Reactions: Allergies antihistamines Adverse Reaction (Uncoded 06/14/18 16:45) contraindicated enlarged prostate Home Medications: Home Meds Medication Instructions Recorded Confirmed RX: Tamsulosin [Flomax] 0.4 mg PO DAILY 11/16/17 11/16/17 Review of Systems - Physician Review All systems were reviewed & negative as marked: Yes - Review of Systems Constitutional: Normal Eyes: Normal ENT: Normal Respiratory: Normal Cardiovascular: Normal Gastrointestinal: Normal Genitourinary Male: Normal Musculoskeletal: Normal Skin: Cellulitis (Face) Neurological: Normal Endocrine: Normal Hemo/Lymphatic: Normal Psychiatric: Normal <DirFozia rosas A - Last Filed: 06/14/18 20:30> Physical Exam Vital Signs Reviewed: Yes Vital Signs Temp Pulse Resp BP Pulse Ox 06/14/18 16:45 98.2 F 86 17 125/83 97 Temperature: Afebrile Blood Pressure: Normal Pulse: Regular Respiratory Rate: Normal Appearance: Positive for: Well-Appearing, Non-Toxic, Comfortable Pain Distress: None Mental Status: Positive for: Alert and Oriented X 3 - Systems Exam Head: Present: Atraumatic, Normocephalic Pupils: Present: PERRL Extroacular Muscles: Present: EOMI Conjunctiva: Present: Normal Mouth: Present: Moist Mucous Membranes, Other (Left cheek swelling noted with some overlaying erythema) Neck: Present: Normal Range of Motion Respiratory/Chest: Present: Clear to Auscultation, Good Air Exchange. No: Respiratory Distress, Accessory Muscle Use Cardiovascular: Present: Regular Rate and Rhythm, Normal S1, S2. No: Murmurs Abdomen: No: Tenderness, Distention, Peritoneal Signs Back: Present: Normal Inspection Upper Extremity: Present: Normal Inspection. No: Cyanosis, Edema Lower Extremity: Present: Normal Inspection. No: Edema Neurological: Present: GCS=15, CN II-XII Intact, Speech Normal Skin: Present: Warm, Dry, Normal Color, Induration (Approximately 2 x 1cm nodule with surrounding erythema noted). No: Rashes Psychiatric: Present: Alert, Oriented x 3, Normal Insight, Normal Concentration <DirFozia rosas A - Last Filed: 06/14/18 20:30> Vital Signs Temp Pulse Resp BP Pulse Ox 06/14/18 16:45 98.2 F 86 17 125/83 97 <Austin Zarco L - Last Filed: 06/18/18 13:41> Medical Decision Making ED Course and Treatment: 06/14/18 20:20 48yo male referred to ED for facial infection to r/o abscess. Labs Maxillofacial CT IV access Lab was reviewed and unremarkable with wnl leukocyte. Pt was comfortable in ED denied pain. He was afebrile. Hemodynamically stable. Maxillofacial CT Subcutaneous edema and inflammatory changes suspected along the left hemimandible and left maxillar region. No distinct fluid collection or abscess on the current study. Dr. Zarco DC with Dr. kendall and he requested that pt should be DC home if lab is negative and CT is negative for abscess. Result was DW the pt. He was strongly advised to continue with his antibiotics. Copy of the CT report was given to the pt and he was referred to his PMD. - RAD Interpretation Radiology Orders: 06/14/18 16:47 MAXILLOFACIAL W/CONTRAST [CT] Stat <Diru,Happiness A - Last Filed: 06/14/18 20:30> - Lab Interpretations Microbiology Results: Microbiology Results 06/14/18 17:00 Blood-Venous Blood Culture - Preliminary NO GROWTH AFTER 3 DAYS 06/14/18 17:30 Blood-Venous Blood Culture - Preliminary NO GROWTH AFTER 3 DAYS Lab Results: 06/14/18 17:30 06/14/18 17:30 Lab Results 06/14/18 17:30: Sodium 141, Potassium 4.7, Chloride 102, Carbon Dioxide 31, Anion Gap 13, BUN 14, Creatinine 1.0, Est GFR ( Amer) > 60, Est GFR (Non- Af Amer) > 60, Random Glucose 102, Calcium 10.1, Total Bilirubin 0.9, AST 29, ALT 33, Alkaline Phosphatase 49, Total Protein 8.3, Albumin 4.7, Globulin 3.6, Albumin/Globulin Ratio 1.3 06/14/18 17:30: PT 13.1 H, INR 1.15, APTT 29.7 06/14/18 17:30: WBC 9.1 D, RBC 5.14, Hgb 15.3 D, Hct 44.1, MCV 85.8, MCH 29.8, MCHC 34.7, RDW 13.0, Plt Count 147, MPV 10.5, Gran % 78.3 H, Lymph % (Auto) 14.1 L, [place] % (Auto) 7.1 H, Eos % (Auto) 0.3 L, Baso % (Auto) 0.2, Gran # 7.08 H, Lymph # (Auto) 1.3, [place] # (Auto) 0.6, Eos # (Auto) 0.0, Baso # (Auto) 0.02 - RAD Interpretation Radiology Orders: 06/14/18 16:47 MAXILLOFACIAL W/CONTRAST [CT] Stat <Austin Zarco - Last Filed: 06/18/18 13:41> - PA / SCRAP SORTER / Resident Statement /DO has reviewed & agrees with the documentation as recorded. <Austin Zarco - Last Filed: 06/18/18 13:41> Disposition/Present on Arrival - Present on Arrival Any Indicators Present on Arrival: No History of DVT/PE: No History of Uncontrolled Diabetes: No Urinary Catheter: No History of Decub. Ulcer: No History Surgical Site Infection Following: None - Disposition Have Diagnosis and Disposition been Completed?: Yes Disposition Time: 20:15 Patient Plan: Discharge <Fozia Bellamy - Last Filed: 06/14/18 20:30> <Austin Zarco - Last Filed: 06/18/18 13:41> - Disposition Diagnosis: Facial infection Disposition: HOME/ ROUTINE Condition: STABLE Discharge Instructions (ExitCare): Cellulitis (Skin Infection), Adult (DC) Additional Instructions: continue with your antibiotic Follow up with your Doctor Return to ED for worsening symptoms Referrals: Aleksey Kendall MD [Primary Care Provider] - Follow up with primary Forms: [employer] (Frisian)
[2018-06-14 17:46] LABS: BASO # 0.02 K/mm3 (0.0-2.0); BASO % 0.2 % (0.0-3.0); EOS % 0.3 % (1.5-5.0); GRAN # 7.08 (1.4-6.5); GRAN % 78.3 % (50.0-68.0); HEMOGLOBIN 15.3 g/dL (14.0-18.0); LYMPH # 1.3 (1.2-3.4); LYMPH % 14.1 % (22.0-35.0); MEAN CELL VOLUME 85.8 fl (80.0-105.0); MEAN CORPUSCULAR HEMOGLOBIN 29.8 pg (25.0-35.0); MEAN CORPUSCULAR HGB CONC 34.7 g/dl (31.0-37.0); MEAN PLATELET VOLUME 10.5 fl (7.0-11.0); MONO # 0.6 (0.1-0.6); MONO % 7.1 % (1.0-6.0); RBC 5.14 10^6/uL (3.5-6.1); WHITE BLOOD COUNT 9.1 10^3/ul (4.5-11.0)
[2018-06-14 17:47] LABS: ALB/GLOB RATIO 1.3 (1.1-1.8); ALBUMIN 4.7 g/dL (3.0-4.8); ALT/SGPT 33 U/L (7-56); AST/SGOT 29 U/L (17-59); BLOOD UREA NITROGEN 14 mg/dL (7-21); CALCIUM 10.1 mg/dL (8.4-10.5); GFR NON-AFRICAN AMERICAN > 60
[2018-06-14 17:51] LABS: INR 1.15; PARTIAL THROMBOPLASTIN TIME 29.7 Seconds (25.1-36.5); PROTHROMBIN TIME 13.1 SECONDS (9.4-12.5)
[2018-06-14] MEDS ORDERED: Iohexol 350 MG/100 ML VIAL ONE (18:16)
--- NOTE | 2018-06-15 10:56 | CT ---
Date of service: 06/14/2018 PROCEDURE: CT MAXILLOFACIAL BONES WITH CONTRAST HISTORY: r/o facial abscess COMPARISON: None. TECHNIQUE: Contiguous axial CT images of the maxillofacial bones were obtained following administration of IV contrast. Coronal and sagittal reformats were generated. Intravenous contrast Dose: Omnipaque 350, 92 cc Radiation dose: Total exam DLP = 812.21 mGy-cm. This CT exam was performed using one or more of the following dose reduction techniques: Automated exposure control, adjustment of the mA and/or kV according to patient size, and/or use of iterative reconstruction technique. FINDINGS: Evaluation of the facial soft tissues reveals injury did thickening of the left pre maxillary soft tissue immediately lateral and posterior to the left nares with local cellulitis pattern a subcutaneous fatty reaction extending into the left cheek all the way down to the level of the mandible and terminating within superficial subcutaneous fat lateral to the upper submandibular space left neck. No emphysematous changes are related. Dental hardware obscures evaluation due to artifact generation with only a tiny lucency appreciated within the thickened pre maxillary soft tissue. While this may be represent a microabscess, phlegmon is favored given its small size and lack of further lucency. No periosteal reaction or bony erosion is seen related to the maxilla or mandible adjacent to it. No dental abscess is appreciated in origin is felt to be dermal. Clinically correlate further. NASAL BONES: Unremarkable. ORBITS: Unremarkable. PARANASAL SINUSES/ MASTOIDS: Clear. MAXILLA: Intact without fracture. MANDIBLE/ TEMPOROMANDIBULAR JOINTS: Intact without fracture or subluxation. No dislocation. SKULL BASE: Unremarkable. TEMPORAL BONES: Middle ears and mastoid grossly unremarkable. OTHER FINDINGS: None. IMPRESSION: No pertinent bony findings as discussed above. Left facial cellulitis is appreciated originating at the region of the medial left pre maxillary soft tissues extending inferolaterally to terminate in the subcutaneous fat immediately inferior to the left mandible horizontal ramus level. No definitive abscess is appreciated with phlegmon favored as discussed above. Dermal origin is favored over dental origin. Concordant preliminary report from [facility], 06/14/2018.
== END 2018-06-14 20:24 | disposition home or self-care (01) ==
LOC: ED 15:52
DX: L08.89 Other specified local infections of the skin and subcutaneous tissue (principal)
CPT/HCPCS: 70488; 80053; 85025; 85610; 85730; 87040; 99283; Q9967